=== PATIENT | female | born 1965 | race Caucasian/White ===

== ENCOUNTER 2017-09-05 15:37 | Emergency (ER) | payer BC, OTHER ==
[~2017-09-05] VITALS: Ht 165.1 cm; Wt 75.0 kg
[2017-09-05 15:44] VITALS: BP 135/87; PULSE 74; TEMP 36.7; O2SAT 97; Ht 165.1 cm; Wt 75.0 kg
--- NOTE | 2017-09-05 16:11 | EMERGENCY ROOM VISIT NOTE ---
History Report prepared by Shannan: Joseph Tolliver Under the Supervision of: Dr. Luan Trivedi M.D. First contact with patient: 15:51 Chief Complaint: NEURO SYMPTOMS Stated Complaint: NUMBNESS IN FACE AND L ARM History of Present Illness The patient is a 52 year old female who presents to the Emergency Room with complaints of constant left side facial numbness for five days [employer]. She notes that her noticed her face sagging on the left side. She notes feeling numbness and tingling through the left side of her face, left neck, and left arm. She has a recent history of cosmetic surgery: breast lift and tummy tuck. She has a family history of strokes (father). She denies any trouble speaking or swallowing, vision changes, headaches, ear pain, chest pain, shortness of breath, abdominal pain, drooling, fevers, leg pain, leg swelling, balance issues , or lightheadedness. She denies taking any medications. She denies any history of cancer, hypertension, diabetes, neurologic disease, or blood clots. She exercises regularly and is right hand dominant. Source of History: patient Onset: five days [employer] Position: other (face) Quality: numbness Timing: constant Associated Symptoms: + numbness (and tingling), No fevers, No headache, No chest pain, No SOB, No abdominal pain Note: She notes left side facial numbness radiating to her left neck and left arm She denies any trouble swallowing or speaking, vision changes, ear pain, drooling, leg pain, leg swelling, balance issues, lightheadedness. Review of Systems See HPI for pertinent positives & negatives. A total of 10 systems reviewed and were otherwise negative. Past Medical & Surgical Surgical Problems: (1) History of cosmetic plastic surgery Old medical records were reviewed. Nurse's notes were reviewed and I agree with. Denies any chronic medical problems. Specifically denies cardiac disease, diabetes, neurologic disease Family History FH: HTN (hypertension) FH: heart disease FH: stroke Social History Smoking Status: Never Smoker Smokeless Tobacco Use: No Alcohol Use: none Drug Use: none Marital Status: Housing Status: lives with significant other Occupation Status: unemployed Allergies Coded Allergies: No Known Allergies (Verified , 11/13/02) Uncoded Allergies: N (Allergy, Unknown, 11/13/02) NKA (Allergy, Unknown, 11/13/02) Physical Exam Vital Signs Date Time Temp Pulse Resp B/P (MAP) Pulse Ox O2 Delivery O2 Flow Rate FiO2 09/05/17 15:44 36.7 74 20 135/87 97 Room Air Physical Exam General: Non-ill appearing middle-aged female in no acute distress. Speaking and swallowing without difficulty. HEENT: Normal cephalic atraumatic. Pupils are equal round and reactive to light. Extraocular movements are intact. Oropharynx is pink with moist mucous membranes. No swelling of the mouth lips or tongue. Neck: Supple with a midline trachea. No meningeal signs or stiffness, no JVD or bruits. No Stridor. Chest: Clear to auscultation bilaterally. No wheezes or rhonchi. No increased work of breathing. Heart: regular rate and rhythm. Abdomen: Soft nontender, nondistended without rebound guarding or rigidity. Extremities: No cyanosis clubbing or edema. No calf tenderness or assymetry Spine/Back. Non tender to palpation. No CVA tenderness Skin: Good turgor without rashes. Neurologic exam: Cranial nerves two through 12 are intact. Motor and sensation are intact and symmetrical throughout. Subjective numbness feeling to left face ; however, sharp and dull sensations are intact. FNF intact, no tremor, and no pronator drift. Medical Decision & Procedures ER Provider Diagnostic Interpretation: Radiology results as stated below per my review and radiologist interpretation: BRAIN COMBO CLINICAL HISTORY: eval for left facial numbness mental status change COMPARISON STUDY: No previous studies for comparison. TECHNIQUE: Utilizing a 1.5 Janey magnet and dedicated coil, multiplanar, multiecho imaging of the brain was performed pre and postcontrast administration. IV administration of 7.5 mL of Gadavist contrast was uneventful. FINDINGS: Diffusion-weighted images show no evidence for an acute ischemic process. Signal characteristics of the cerebellar as well as cerebral hemispheres are unremarkable. Several very small foci of increased signal are identified in the frontal regions bilaterally. Is a consistent with minimal chronic small vessel change. No abnormal postcontrast enhancement. Sella and parasellar regions are unremarkable. Internal artery canals are symmetric. IMPRESSION: Normal study. The above report was generated using voice recognition software. It may contain grammatical, syntax or spelling errors. Electronically signed by: Grant Cuadra M.D. 09/05/2017 4:58 PM Dictated Date/Time: 09/05/2017 4:56 PM Laboratory Results 09/05/17 16:15 Red Blood Count 4.54, Mean Corpuscular Volume 90.7, Mean Corpuscular Hemoglobin 31.3, Mean Corpuscular Hemoglobin Concent 34.5, Mean Platelet Volume 9.3, Neutrophils (%) (Auto) 60.4, Lymphocytes (%) (Auto) 32.8, Monocytes (%) (Auto) 5.2, Eosinophils (%) (Auto) 1.3, Basophils (%) (Auto) 0.2, Neutrophils # (Auto) 5.08, Lymphocytes # (Auto) 2.76, Monocytes # (Auto) 0.44, Eosinophils # (Auto) 0.11, Basophils # (Auto) 0.02 09/05/17 16:15 Test 09/05/17 16:15 09/05/17 16:19 White Blood Count 8.42 K/uL (4.8-10.8) Red Blood Count 4.54 M/uL (4.2-5.4) Hemoglobin 14.2 g/dL (12.0-16.0) Hematocrit 41.2 % (37-47) Mean Corpuscular Volume 90.7 fL (80-100) Mean Corpuscular Hemoglobin 31.3 pg (25-34) Mean Corpuscular Hemoglobin Concent 34.5 g/dl (32-36) Platelet Count 263 K/uL (130-400) Mean Platelet Volume 9.3 fL (7.4-10.4) Neutrophils (%) (Auto) 60.4 % Lymphocytes (%) (Auto) 32.8 % Monocytes (%) (Auto) 5.2 % Eosinophils (%) (Auto) 1.3 % Basophils (%) (Auto) 0.2 % Neutrophils # (Auto) 5.08 K/uL (1.4-6.5) Lymphocytes # (Auto) 2.76 K/uL (1.2-3.4) Monocytes # (Auto) 0.44 K/uL (0.11-0.59) Eosinophils # (Auto) 0.11 K/uL (0-0.5) Basophils # (Auto) 0.02 K/uL (0-0.2) RDW Standard Deviation 41.6 fL (36.4-46.3) RDW Coefficient of Variation 12.5 % (11.5-14.5) Immature Granulocyte % (Auto) 0.1 % Immature Granulocyte # (Auto) 0.01 K/uL (0.00-0.02) Anion Gap 7.0 mmol/L (3-11) Est Creatinine Clear Calc Drug Dose 86.8 ml/min Estimated GFR () 103.8 Estimated GFR (Non- 89.6 BUN/Creatinine Ratio 22.3 (10-20) Calcium Level 9.1 mg/dl (8.5-10.1) Total Bilirubin 0.3 mg/dl (0.2-1) Direct Bilirubin < 0.1 mg/dl (0-0.2) Aspartate Amino Transf (AST/SGOT) 33 U/L (15-37) Alanine Aminotransferase (ALT/SGPT) 47 U/L (12-78) Alkaline Phosphatase 113 U/L (45-117) Total Protein 7.2 gm/dl (6.4-8.2) Albumin 3.8 gm/dl (3.4-5.0) Lipase 189 U/L (73-393) Thyroid Stimulating Hormone (TSH) 1.360 uIu/ml (0.300-4.500) Lyme Disease IgG Antibody NEG (NEG) Lyme Disease IgM Antibody NEG (NEG) Bedside Troponin I < 0.030 ng/ml (0-0.045) Laboratory studies as stated above per my review. ECG Indication: other (left facial numbness) Rate (beats per minute): 70 Rhythm: normal sinus Findings: no acute ischemic change, no ectopy Comparison ECG Date: no prior available ED Course 1552: Past medical records reviewed. The patient was evaluated in room B4B, and a complete history and physical examination were performed. 1725: I reassessed the patient at this time. She is feeling better and resting comfortably. 1749: I reassessed the patient at this time. She is feeling better and resting comfortably. I discussed the results and treatment plan with the patient. I answered all pertaining questions that she had. She expressed understanding and verbalized agreement. The patient will be discharged home. Medical Decision Differentials include, but are not limited to; CVA, TIA, electrolyte abnormality , lyme disease, and cardiac disease. This patient comes in as described above. She's been having numbness sensation of her left face and possibly into her left arm for 5 days or so now. She looks well on exam and is intact to sharp and dull in this area. She has a family history of CVA although she is very healthy otherwise. IV access established and blood work was obtained a did an EKG as well an MRI of her brain. She was reassessed frequently. EKG does not suggest any cardiac arrhythmia or ischemic changes. She has no acute electrolyte or metabolic abnormalities and her Lyme titer was negative. MRI of the brain was unremarkable and no evidence of CVA. He's been going on for several days and I would expect to see a change at this point if this was a stroke. I do think she should follow-up with her regular doctor. She'll take a baby aspirin a day and return if: Worsening of symptoms, numbness or weakness, fever or chills, any new problems or concerns. Medication Reconcilliation Current Medication List: was personally reviewed by me Blood Pressure Screening Patient's blood pressure: Elevated blood pressure Blood pressure disposition: Elevated BP felt to be situational Impression Primary Impression: Left facial numbness Scribe Attestation The scribe's documentation has been prepared under my direction and personally reviewed by me in its entirety. I confirm that the note above accurately reflects all work, treatment, procedures, and medical decision making performed by me. Departure Information Dispostion Home / Self-Care Referrals Yvonne Grant M.D. (PCP) Forms HOME CARE DOCUMENTATION FORM, IMPORTANT VISIT INFORMATION, WORK / SCHOOL INSTRUCTIONS Patient Instructions [facility] Additional Instructions Rest. Drink plenty of fluids. Return if: Increasing numbness or weakness, worsening symptoms, fever chills, any new problems or concerns. Follow-up with your doctor this week or early next week for recheck
[2017-09-05 16:26] LABS: BASO % 0.2 %; BASO ABS # 0.02 K/uL (0-0.2); COMPLETE YES; EOS % 1.3 %; HEMATOCRIT 41.2 % (37-47); IG% 0.1 %; LYMPH % 32.8 %; LYMPH ABS # 2.76 K/uL (1.2-3.4); MEAN CELL VOLUME 90.7 fL (80-100); MEAN CORPUSCULAR HEMOGLOBIN 31.3 pg (25-34); MEAN CORPUSCULAR HGB CONC 34.5 g/dl (32-36); MEAN PLATELET VOLUME 9.3 fL (7.4-10.4); MONO % 5.2 %; NEUT % 60.4 %; PLATELET COUNT 263 K/uL (130-400); RED BLOOD COUNT 4.54 M/uL (4.2-5.4); WHITE BLOOD COUNT 8.42 K/uL (4.8-10.8)
[2017-09-05 16:46] LABS: ALT/SGPT 47 U/L (12-78); BLOOD UREA NITROGEN 17 mg/dl (7-18); BUN/CREATININE RATIO 22.3 (10-20); CALCIUM 9.1 mg/dl (8.5-10.1); CARBON DIOXIDE 26 mmol/L (21-32); CHLORIDE 105 mmol/L (98-107); CREATININE 0.76 mg/dl (0.60-1.20); GLUCOSE 91 mg/dl (70-99); POTASSIUM 3.6 mmol/L (3.5-5.1); SODIUM 137 mmol/L (136-145)
[2017-09-05 16:57] LABS: ALKALINE PHOSPHATASE 113 U/L (45-117); AST/SGOT 33 U/L (15-37)
--- NOTE | 2017-09-05 16:59 | DIAGNOSTIC IMAGING REPORT ---
BRAIN COMBO CLINICAL HISTORY: eval for left facial numbness mental status change COMPARISON STUDY: No previous studies for comparison. TECHNIQUE: Utilizing a 1.5 Janey magnet and dedicated coil, multiplanar, multiecho imaging of the brain was performed pre and postcontrast administration. IV administration of 7.5 mL of Gadavist contrast was uneventful. FINDINGS: Diffusion-weighted images show no evidence for an acute ischemic process. Signal characteristics of the cerebellar as well as cerebral hemispheres are unremarkable. Several very small foci of increased signal are identified in the frontal regions bilaterally. Is a consistent with minimal chronic small vessel change. No abnormal postcontrast enhancement. Sella and parasellar regions are unremarkable. Internal artery canals are symmetric. IMPRESSION: Normal study. The above report was generated using voice recognition software. It may contain grammatical, syntax or spelling errors. Electronically signed by: Grant Cuadra M.D. 09/05/2017 4:58 PM Dictated Date/Time: 09/05/2017 4:56 PM
[2017-09-05] MEDS ORDERED: GADAVIST IV PRN (17:00)
[2017-09-05 17:22] LABS: LYME DISEASE AB IGM NEG (NEG)
[2017-09-05 17:24] LABS: LYME DISEASE AB IGG NEG (NEG)
== END 2017-09-05 18:04 | disposition home or self-care (01) ==
LOC: C.EDB 15:39
DX: R20.2 Paresthesia of skin (principal); Z82.3 Family history of stroke; Z82.49 Family history of ischemic heart disease and other diseases of the circulatory system